=== PATIENT | female | born 1960 | race American Indian/Alaskan Native ===

== ENCOUNTER 2019-06-12 22:25 | Emergency (ER) | payer MEDICAID ==
[2019-06-13] MEDS ORDERED: ONDANSETRON 4 MG ODT TAB PO ONE (00:11)
[2019-06-13] MEDS ORDERED: oxyCODONE /ACETAMINOPHEN 5-325MG TAB PO ONE (00:11)
[2019-06-13] MEDS ORDERED: CYCLOBENZAPRINE 10 MG TAB PO ONE (00:12)
--- NOTE | 2019-06-13 00:53 | Emergency Department Report ---
ED Fall HPI - General Chief Complaint: Fall Stated Complaint: BACK PAIN Source: patient, EMS Mode of arrival: Wheelchair - History of Present Illness Initial Comments: Patient is a 58-year-old -[place] female with a history of hypertension, chronic neck and back pain who presented to the ED with complaint of neck pain, headache, diffuse body aches and severe low back pain after she slipped and fell down the stairs about 6 hours ago. Patient states that the pain has worsened since she fell down the stairs 6 hours ago. Patient states that the pain is worse with any movement especially weightbearing. Patient denies loss of consciousness, dizziness, syncope, seizures, chest pain, shortness of breath, abdominal pain, hematuria, change in vision, numbness or tingling or weakness of lower and upper extremities bilaterally, urinary or bowel incontinence and saddle paresthesia nausea MD Complaint: fall, other (headache, neck and lower back pain) -: Sudden, hour(s) (6) Fall From: down stairs (#), other (slipped and fell down the stairs ) When Fall Occurred: 4-6 hours [employer] Fall Witnessed: yes, by family Place Fall Occurred: home Loss of Consciousness: none Prolonged Down Time?: no Symptoms Prior to Fall: none Location: head, neck, back Severity: severe Severity scale (0 -10): 8 Quality: sharp, aching Context: tripped/slipped Associated Symptoms: headache, neck pain. denies: numbness, weakness, abdominal pain, hematuria, unable to walk, lightheaded, vertigo, confusion - Related Data Previous Rx's Medication Instructions Recorded Last Taken Type methOCARBAMOL [Robaxin TAB] 750 mg PO Q8H PRN #21 tablet 06/13/19 Unknown Rx Allergies Allergy/AdvReac Type Severity Reaction Status Date / Time NSAIDS (Non-Steroidal Allergy Unknown Verified 06/12/19 22:35 Anti-Inflamma ED Review of Systems ROS: Stated complaint: BACK PAIN Other details as noted in HPI Constitutional: denies: chills, fever, weakness Eyes: denies: eye pain, eye discharge, vision change ENT: denies: ear pain, throat pain, congestion, other Respiratory: denies: cough, shortness of breath, SOB with exertion, SOB at rest, wheezing Cardiovascular: denies: chest pain, palpitations, dyspnea on exertion, edema, paroxysmal nocturnal dyspnea, other Endocrine: no symptoms reported Gastrointestinal: denies: abdominal pain, nausea, vomiting, diarrhea Genitourinary: denies: urgency, dysuria, discharge Musculoskeletal: back pain (lower back pain), arthralgia (neck pain). denies: joint swelling Skin: denies: rash, lesions Neurological: headache. denies: weakness, paresthesias, confusion, abnormal gait, vertigo Psychiatric: anxiety. denies: depression Hematological/Lymphatic: denies: easy bleeding, easy bruising ED Past Medical Hx - Past Medical History Previous Medical History?: Yes Hx Hypertension: Yes - Surgical History Past Surgical History?: Yes Additional Surgical History: partial hyster. x3. right ovary. tubal ligation - Social History Smoking Status: Current Every Day Smoker Substance Use Type: None - Medications Home Medications: Home Medications Medication Instructions Recorded Confirmed Last Taken Type methOCARBAMOL [Robaxin TAB] 750 mg PO Q8H PRN #21 tablet 06/13/19 Unknown Rx ED Physical Exam - General Limitations: No Limitations General appearance: alert, in no apparent distress - Head Head exam: Present: atraumatic, normocephalic, normal inspection - Eye Eye exam: Present: normal appearance, PERRL, EOMI. Absent: scleral icterus, conjunctival injection, nystagmus, periorbital swelling, periorbital tenderness Pupils: Present: normal accommodation - ENT ENT exam: Present: normal exam, normal orophraynx, mucous membranes moist, TM's normal bilaterally, normal external ear exam - Neck Neck exam: Present: normal inspection, tenderness (palpable cervical paraspinal musculoskeletal tenderness), full ROM. Absent: lymphadenopathy, thyromegaly - Respiratory Respiratory exam: Present: normal lung sounds bilaterally. Absent: respiratory distress, rales, rhonchi, chest wall tenderness, accessory muscle use, decreased breath sounds, prolonged expiratory - Cardiovascular Cardiovascular Exam: Present: regular rate, normal rhythm, normal heart sounds. Absent: systolic murmur, diastolic murmur, rubs, gallop - GI/Abdominal GI/Abdominal exam: Present: soft, normal bowel sounds. Absent: tenderness, rebound, hyperactive bowel sounds, hypoactive bowel sounds, bruit - Extremities Exam Extremities exam: Present: normal inspection, full ROM, normal capillary refill - Back Exam Back exam: Present: normal inspection, full ROM, tenderness (palpable lumbosacral paraspinal musculoskeletal tenderness), muscle spasm, paraspinal tenderness - Neurological Exam Neurological exam: Present: alert, oriented X3, CN II-XII intact, normal gait, reflexes normal - Psychiatric Psychiatric exam: Present: normal affect, normal mood - Skin Skin exam: Present: warm, dry, intact, normal color. Absent: rash ED Course Vital Signs 06/12/19 06/13/19 22:34 01:00 Temperature 98.4 F Pulse Rate 107 H Respiratory 18 16 Rate Blood Pressure 101/83 O2 Sat by Pulse 97 Oximetry - Reevaluation(s) Reevaluation #1: 06/13/19 00:53 This is a 58-year-old -[place] female with a history of hypertension, chronic neck and back pain who presented to the ED with complaint of neck pain, headache, diffuse body aches and severe low back pain after she slipped and fell down the stairs about 6 hours ago. In the ED, patient is alert and oriented 3 and is not in distress but appears to be in pain and is anxious. The patient's gait is normal as tested the ED. Head CT scan without contrast, the C-spine CT scan without contrast and L-spine CT scan without contrast were ordered. Patient was treated for pain in the ED. the head CT scan without contrast shows no acute intracranial abnormalities or hemorrhage. The C-spine CT scan without contrast shows no acute fractures or subluxations. The L-spine CT scan without contrast shows no acute fractures or subluxations. On reevaluation, patient's pain is well controlled with medications, and patient was discharged home on muscle relaxants since the patient already was to the pain clinic for her chronic pain control. Vision advised to take regularly prescribed medications for pain and follow-up with her primary care physician in 5-7 days for reevaluation or return to the ED immediately if symptoms get worse. 06/13/19 01:25 ED Medical Decision Making - Radiology Data Radiology results: report reviewed, image reviewed C-spine CT scan without contrast shows no acute cervical disc fractures or subluxations. Head CT scan without contrast shows no acute intracranial abnormalities or hemorrhage. L-spine CT scan without contrast shows no acute lumbar spine fractures or subluxations. - Medical Decision Making This is a 58-year-old -[place] female with a history of hypertension, chronic neck and back pain who presented to the ED with complaint of neck pain, headache, diffuse body aches and severe low back pain after she slipped and fell down the stairs about 6 hours ago. In the ED, patient is alert and oriented 3 and is not in distress but appears to be in pain and is anxious. The patient's gait is normal as tested the ED. Head CT scan without contrast, the C-spine CT scan without contrast and L-spine CT scan without contrast were ordered. Patient was treated for pain in the ED. the head CT scan without contrast shows no acute intracranial abnormalities or hemorrhage. The C-spine CT scan without contrast shows no acute fractures or subluxations. The L-spine CT scan without contrast shows no acute fractures or subluxations. On reevaluation, patient's pain is well controlled with medications, and patient was discharged home on muscle relaxants since the patient already was to the pain clinic for her chronic pain control. Vision advised to take regularly prescribed medications for pain and follow-up with her primary care physician in 5-7 days for reevaluation or return to the ED immediately if symptoms get worse. - Differential Diagnosis cervical sprain; Muscle spasm; back pain; headache Critical care attestation.: If time is entered above; I have spent that time in minutes in the direct care of this critically ill patient, excluding procedure time. ED Disposition Clinical Impression: Spasm of muscle of lower back, Cervical paraspinal muscle spasm Chronic lower back pain Qualifiers: Back pain laterality: bilateral Sciatica presence: without sciatica Qualified Code(s): M54.5 - Low back pain Disposition: - TO HOME OR SELFCARE Is pt being admited?: No Does the pt Need Aspirin: No Condition: Stable Instructions: Low Back Strain (ED), Cervical Sprain (ED), Muscle Spasm (ED), Chronic Back Pain (ED) Additional Instructions: Take your regular pain medications as previously prescribed, drink plenty of fluids and follow-up with your primary care physician in 7-10 days for reevaluation. Return to the ED immediately if symptoms get worse. Prescriptions: methOCARBAMOL [Robaxin TAB] 750 mg PO Q8H PRN #21 tablet PRN Reason: Muscle Spasm Referrals: PRIMARY CARE, [Primary Care Provider] - 3-5 Days Time of Disposition: 01:00 Print Language: DUTCH
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
[2019-06-13 01:51] VITALS: BP 101/82
== END 2019-06-13 01:48 | disposition home or self-care (01) ==
LOC: ED 22:25
DX: M62.830 Muscle spasm of back (principal); M54.2 Cervicalgia; I10 Essential (primary) hypertension; F17.200 Nicotine dependence, unspecified, uncomplicated; Z98.51 Tubal ligation status; Z90.711 Acquired absence of uterus with remaining cervical stump; Z88.7 Allergy status to serum and vaccine; W01.198A Fall on same level from slipping, tripping and stumbling with subsequent striking against other object, initial encounter; Y93.89 Activity, other specified; Y92.098 Other place in other non-institutional residence as the place of occurrence of the external cause; Y99.8 Other external cause status
CPT/HCPCS: 70450; 72125; 72131; 99284; Q0162

== ENCOUNTER 2019-07-13 22:25 | Emergency (ER) | payer MEDICAID ==
[2019-07-13] MEDS ORDERED: ASPIRIN 325 MG TAB PO ONE (22:44)
--- NOTE | 2019-07-13 23:32 | XRay Report ---
CHEST 1 VIEW INDICATION / CLINICAL INFORMATION: Chest Pain. COMPARISON: None available. FINDINGS: SUPPORT DEVICES: None. HEART / MEDIASTINUM: No significant abnormality. LUNGS / PLEURA: Small right pleural effusion. Ill-defined patchy density of the right lower lung. Signer Name: Nick Kraft MD Signed: 07/13/2019 11:27 PM Workstation Name: [id number]
[2019-07-13 23:47] LABS: Hematocrit 44.1 % (30.3-42.9); Hemoglobin 14.5 gm/dl (10.1-14.3); Mean Corpuscular HGB Conc 33 % (30-34); Mean Corpuscular Volume 86 fl (79-97); Platelet Count 223 K/mm3 (140-440); Red Blood Count 5.15 M/mm3 (3.65-5.03); Red Cell Distribution Width 14.4 % (13.2-15.2)
[2019-07-14 00:07] LABS: BUN/Creatinine Ratio 29; Blood Urea Nitrogen 26 mg/dL (7-17); Calcium 9.6 mg/dL (8.4-10.2); Hemolysis Index 8
[2019-07-14] MEDS ORDERED: HYDROcodone/ACETAMINOPHEN 10-325MG TAB PO ONE (01:37)
[2019-07-14] MEDS ORDERED: ONDANSETRON 4 MG ODT TAB PO ONE (01:37)
[2019-07-14 01:43] LABS: Basophils % (Manual) 0 % (0.0-1.8); Eosinophils % (Manual) 0 % (0.0-4.3); Total Cells Counted 100
[2019-07-14 01:44] LABS: Stomatocytes Rare
[2019-07-14 01:45] LABS: Anisocytosis Few; Large Platelets Rare
[2019-07-14 01:46] LABS: Platelet Estimate Cons
--- NOTE | 2019-07-14 02:44 | Emergency Department Report ---
ED General Adult HPI - General Chief complaint: Chest Pain Stated complaint: BODY PAIN Time Seen by Provider: 07/14/19 00:57 Source: patient Mode of arrival: Ambulatory Limitations: No Limitations - History of Present Illness Initial comments: Patient presents to the emergency department with a chief complaint of chest pain that started 2 days ago. Patient states the chest pain is located on the left side of her chest without radiation. Patient describes the chest pain as dull in nature. Patient also complains of having full body pain from a fall 3 days ago. She denies loss of consciousness or hitting her head during this fall. Patient initially discussed staff upon presentation that she had neck pain but now she states she never had no pain. Patient denies any shortness of breath or headaches. She also denies abdominal pain. -: days(s) (2) Location: chest Radiation: non-radiation Severity scale (0 -10): 7 Consistency: constant Improves with: none Worsens with: none Associated Symptoms: denies other symptoms Treatments Prior to Arrival: none - Related Data Previous Rx's Medication Instructions Recorded Last Taken Type methOCARBAMOL [Robaxin TAB] 750 mg PO Q8H PRN #21 tablet 06/13/19 Unknown Rx ALBUTEROL Inhaler (OR & NICU) 2 puff IH Q4HR PRN #1 inhalation 07/14/19 Unknown Rx [ProAir HFA Inhaler] levoFLOXacin [Levaquin] 750 mg PO QDAY #7 tablet 07/14/19 Unknown Rx Allergies Allergy/AdvReac Type Severity Reaction Status Date / Time NSAIDS (Non-Steroidal Allergy Unknown Verified 06/12/19 22:35 Anti-Inflamma ED Review of Systems ROS: Stated complaint: BODY PAIN Other details as noted in HPI Comment: All other systems reviewed and negative Constitutional: denies: chills, fever Eyes: denies: eye pain, eye discharge, vision change ENT: denies: ear pain, throat pain Respiratory: denies: cough, shortness of breath, wheezing Cardiovascular: chest pain. denies: palpitations Endocrine: no symptoms reported Gastrointestinal: denies: abdominal pain, nausea, diarrhea Genitourinary: denies: urgency, dysuria, discharge Musculoskeletal: denies: back pain, joint swelling, arthralgia Skin: denies: rash, lesions Neurological: denies: headache, weakness, paresthesias Psychiatric: denies: anxiety, depression Hematological/Lymphatic: denies: easy bleeding, easy bruising ED Past Medical Hx - Past Medical History Hx Hypertension: Yes Additional medical history: HERNIATED DISC,SCIATICA - Surgical History Additional Surgical History: partial hyster. x3. right ovary. tubal ligation - Social History Smoking Status: Current Every Day Smoker Substance Use Type: None - Medications Home Medications: Home Medications Medication Instructions Recorded Confirmed Last Taken Type methOCARBAMOL [Robaxin TAB] 750 mg PO Q8H PRN #21 tablet 06/13/19 Unknown Rx ALBUTEROL Inhaler (OR & NICU) 2 puff IH Q4HR PRN #1 inhalation 07/14/19 Unknown Rx [ProAir HFA Inhaler] levoFLOXacin [Levaquin] 750 mg PO QDAY #7 tablet 07/14/19 Unknown Rx ED Physical Exam - General Limitations: No Limitations General appearance: alert, in no apparent distress - Head Head exam: Present: atraumatic, normocephalic - Eye Eye exam: Present: normal appearance, PERRL, EOMI - ENT ENT exam: Present: mucous membranes moist - Neck Neck exam: Present: normal inspection - Respiratory Respiratory exam: Present: normal lung sounds bilaterally. Absent: respiratory distress - Cardiovascular Cardiovascular Exam: Present: regular rate, normal rhythm. Absent: systolic murmur, diastolic murmur, rubs, gallop - GI/Abdominal GI/Abdominal exam: Present: soft, normal bowel sounds. Absent: distended, tenderness - Extremities Exam Extremities exam: Present: normal inspection - Back Exam Back exam: Present: normal inspection - Neurological Exam Neurological exam: Present: alert, oriented X3, CN II-XII intact. Absent: motor sensory deficit - Psychiatric Psychiatric exam: Present: normal affect, normal mood - Skin Skin exam: Present: warm, dry, intact, normal color. Absent: rash ED Course Vital Signs 07/13/19 22:32 Temperature 98.3 F Pulse Rate 98 H Respiratory 16 Rate Blood Pressure 117/80 O2 Sat by Pulse 99 Oximetry ED Medical Decision Making - Lab Data Result diagrams: 07/13/19 23:04 07/13/19 23:04 Lab Results 07/13/19 07/13/19 07/14/19 Range/Units 23:04 23:04 01:20 WBC 6.2 (4.5-11.0) K/mm3 RBC 5.15 H (3.65-5.03) M/mm3 Hgb 14.5 H (10.1-14.3) gm/dl Hct 44.1 H (30.3-42.9) % MCV 86 (79-97) fl MCH 28 (28-32) pg MCHC 33 (30-34) % RDW 14.4 (13.2-15.2) % Plt Count 223 (140-440) K/mm3 Lymph % (Auto) Cardiac/Vascular Sonographer Add Manual Diff Complete Total Counted 100 Seg Neutrophils % Cardiac/Vascular Sonographer Seg Neuts % (Manual) 30.0 L (40.0-70.0) % Band Neutrophils % 0 % Lymphocytes % (Manual) 66.0 H (13.4-35.0) % Reactive Lymphs % (Man) 0 % Monocytes % (Manual) 4.0 (0.0-7.3) % Eosinophils % (Manual) 0 (0.0-4.3) % Basophils % (Manual) 0 (0.0-1.8) % Metamyelocytes % 0 % Myelocytes % 0 % Promyelocytes % 0 % Blast Cells % 0 % Nucleated RBC % Not Reportable Seg Neutrophils # Man 1.9 (1.8-7.7) K/mm3 Band Neutrophils # 0.0 K/mm3 Lymphocytes # (Manual) 4.1 (1.2-5.4) K/mm3 Abs React Lymphs (Man) 0.0 K/mm3 Monocytes # (Manual) 0.2 (0.0-0.8) K/mm3 Eosinophils # (Manual) 0.0 (0.0-0.4) K/mm3 Basophils # (Manual) 0.0 (0.0-0.1) K/mm3 Metamyelocytes # 0.0 K/mm3 Myelocytes # 0.0 K/mm3 Promyelocytes # 0.0 K/mm3 Blast Cells # 0.0 K/mm3 WBC Morphology Not Reportable Hypersegmented Neuts Not Reportable Hyposegmented Neuts Not Reportable Hypogranular Neuts Not Reportable Smudge Cells Not Reportable Toxic Granulation Not Reportable Toxic Vacuolation Not Reportable Dohle Bodies Not Reportable Pelger-Huet Anomaly Not Reportable Deann Rods Not Reportable Platelet Estimate Cons Clumped Platelets Not Reportable Plt Clumps, EDTA Not Reportable Large Platelets Rare Giant Platelets Not Reportable Platelet Satelliting Not Reportable Plt Morphology Comment Not Reportable RBC Morphology Not Reportable Dimorphic RBCs Not Reportable Polychromasia Not Reportable Hypochromasia Not Reportable Poikilocytosis Not Reportable Anisocytosis Few Microcytosis Not Reportable Macrocytosis Not Reportable Spherocytes Not Reportable Pappenheimer Bodies Not Reportable Sickle Cells Not Reportable Target Cells Not Reportable Tear Drop Cells Not Reportable Ovalocytes Not Reportable Stomatocytes Rare Helmet Cells Not Reportable Reyes-Olmitz Bodies Not Reportable Vida Rings Not Reportable [place] Cells Not Reportable Bite Cells Not Reportable Crenated Cell Not Reportable Elliptocytes Not Reportable Acanthocytes (Spur) Not Reportable Rouleaux Not Reportable Hemoglobin C Crystals Not Reportable Schistocytes Not Reportable Malaria parasites Not Reportable Osvaldo Bodies Not Reportable Hem Pathologist Commnt No Sodium 139 (137-145) mmol/L Potassium 4.9 (3.6-5.0) mmol/L Chloride 101.9 (98-107) mmol/L Carbon Dioxide 27 (22-30) mmol/L Anion Gap 15 mmol/L BUN 26 H (7-17) mg/dL Creatinine 0.9 (0.7-1.2) mg/dL Estimated GFR > 60 ml/min BUN/Creatinine Ratio 29 % Glucose 92 (65-100) mg/dL Calcium 9.6 (8.4-10.2) mg/dL Troponin T < 0.010 < 0.010 (0.00-0.029) ng/mL - EKG Data -: EKG Interpreted by De EKG shows normal: sinus rhythm Rate: normal - Radiology Data Radiology results: report reviewed - Medical Decision Making Results discussed with patient Critical care attestation.: If time is entered above; I have spent that time in minutes in the direct care of this critically ill patient, excluding procedure time. ED Disposition Clinical Impression: Pneumonia, Nonspecific chest pain Disposition: DC-01 TO HOME OR SELFCARE Is pt being admited?: No Does the pt Need Aspirin: No Condition: Stable Instructions: Chest Pain (ED), Bacterial Pneumonia (ED), Noncardiac Chest Pain (ED) Additional Instructions: return if worse Prescriptions: levoFLOXacin [Levaquin] 750 mg PO QDAY #7 tablet ALBUTEROL Inhaler (OR & NICU) [ProAir HFA Inhaler] 2 puff IH Q4HR PRN #1 inhalation PRN Reason: Shortness Of Breath Referrals: PRIMARY CARE, [Primary Care Provider] - 3-5 Days [facility] [Provider Group] - 3-5 Days [facility] [Provider Group] - 3-5 Days JASON RAE MD [Staff Physician] - 3-5 Days Time of Disposition: 02:44
[2019-07-14 04:15] VITALS: BP 114/80
== END 2019-07-14 04:07 | disposition home or self-care (01) ==
LOC: ED 22:25
DX: J18.9 Pneumonia, unspecified organism (principal); I10 Essential (primary) hypertension; F17.200 Nicotine dependence, unspecified, uncomplicated; Z98.51 Tubal ligation status; Z79.899 Other long term (current) drug therapy; Z88.6 Allergy status to analgesic agent; Z90.710 Acquired absence of both cervix and uterus; Z98.890 Other specified postprocedural states
CPT/HCPCS: 36415; 71045; 80048; 84484; 85007; 85025; 93005; 93010; Q0162